=== PATIENT | male | born 1975 | race American Indian/Alaskan Native ===

== ENCOUNTER 2017-04-11 11:45 | Emergency (ER) | payer BC, MEDICAID, OTHER ==
--- NOTE | 2017-04-11 11:48 | EDM.PDOC ---
ED HPI GENERAL MEDICAL PROBLEM - General Chief Complaint: Respiratory Problem Stated Complaint: [id number] AT WORK AND INHALED CLORINE GAS Time Seen by Provider: 04/11/17 11:48 Source of Information: Reports: Patient, RN, RN Notes Reviewed History Limitations: Reports: No Limitations - History of Present Illness INITIAL COMMENTS - FREE TEXT/NARRATIVE: Pt c/o chlorine gas exposure at work just [employer] to the ER. He entered a room to change a chlorine gas cylinder and when he stepped into the area he was overwhelmed by chlorine gas. Pt states the he immediately coughed, gagged, and choked but was able to quickly leave the area. He coughed hard for quite a while , but now is starting to feel better. He denies current pain or shortness of breath. Admits to minor eye irritation and a slight burning in his throat. Onset: Today Duration: Improving Location: Reports: Generalized Quality: Reports: Burning Severity: Moderate Improves with: Reports: None Worsens with: Reports: None Associated Symptoms: Reports: No Other Symptoms Back Pain Score (Numeric/FACES): 3 - Related Data Allergies Allergy/AdvReac Type Severity Reaction Status Date / Time No Known Allergies Allergy Verified 04/11/17 12:04 Home Meds: Home Meds . [No Known Home Meds] 10/02/13 [History] Past Medical History - Past Health History Medical/Surgical History: Denies Medical/Surgical History HEENT History: Reports: None Cardiovascular History: Reports: None Respiratory History: Reports: None Gastrointestinal History: Reports: None Genitourinary History: Reports: None Musculoskeletal History: Reports: None Neurological History: Reports: None Psychiatric History: Reports: None Endocrine/Metabolic History: Reports: None Hematologic History: Reports: None Immunologic History: Reports: None Oncologic (Cancer) History: Reports: None Dermatologic History: Reports: None - Past Surgical History Head Surgeries/Procedures: Reports: None Social & Family History - Family History Family Medical History: Noncontributory - Tobacco Use Smoking Status *Q: Never Smoker Years of Tobacco use: 0 Used Tobacco, but Quit: Yes Month Tobacco Last Used: 10/2011 Second Hand Smoke Exposure: Yes - Recreational Drug Use Recreational Drug Use: No - Living Situation & Occupation Living situation: Reports: Occupation: Employed ED ROS GENERAL - Review of Systems Review Of Systems: ROS reveals no pertinent complaints other than HPI. ED EXAM, GENERAL - Physical Exam Exam: See Below Exam Limited By: No Limitations General Appearance: Alert, WD/WN, No Apparent Distress, Obese Eye Exam: Bilateral Eye: Conjunctival Injection (mild), EOMI, PERRL, Other ( mild scleral erythema) Ears: Normal External Exam, Normal Canal, Hearing Grossly Normal, Normal TMs Nose: No Blood, Nasal Drainage (small amt. of clear nasal mucus drainage) Throat/Mouth: Normal Inspection, Normal Lips, Normal Teeth, Normal Gums, Normal Oropharynx, Normal Voice, No Airway Compromise Head: Atraumatic, Normocephalic Neck: Normal Inspection, Supple, Non-Tender, Full Range of Motion Respiratory/Chest: No Respiratory Distress, Lungs Clear, Normal Breath Sounds, No Accessory Muscle Use, Chest Non-Tender Cardiovascular: Normal Peripheral Pulses, Regular Rate, Rhythm, No Edema, No Gallop, No JVD, No Murmur, No Rub GI/Abdominal: Normal Bowel Sounds, Soft, Non-Tender, No Distention (Male) Exam: Deferred Rectal (Males) Exam: Deferred Back Exam: Normal Inspection Extremities: Normal Inspection Neurological: Alert, Oriented, CN II-XII Intact, Normal Cognition, Normal Gait, No Motor/Sensory Deficits Psychiatric: Normal Affect, Normal Mood Skin Exam: Warm, Dry, Intact, Normal Color, No Rash Course - Vital Signs Last Recorded V/S: Last Vital Signs Temp 36.7 C 04/11/17 11:54 Pulse 60 04/11/17 11:54 Resp 20 04/11/17 11:54 BP 135/98 H 04/11/17 11:54 Pulse Ox 98 04/11/17 11:54 - Re-Assessments/Exams Free Text/Narrative Re-Assessment/Exam: 04/11/17 12:41 Eyes irrigated by RN, see nurses documentation. Departure - Departure Time of Disposition: 12:27 Disposition: Home, Self-Care 01 Condition: Good Clinical Impression: Chlorine gas exposure, Work related injury - Discharge Information Instructions: Chemical Inhalation Injury Forms: ED Department Discharge Additional Instructions: Go home take a long cool shower, and put on different clothes when you get dressed. Drink plenty of cold water today. Avoid hot drinks today. Follow up in clinic in 2 days if any symptoms persist.
[2017-04-11 11:55] VITALS: BP 135/98
== END 2017-04-11 12:37 | disposition home or self-care (01) ==
LOC: DL.ED 11:45
DX: Z77.098 Contact with and (suspected) exposure to other hazardous, chiefly nonmedicinal, chemicals (principal); H57.8 Other specified disorders of eye and adnexa; Y99.0 Civilian activity done for income or pay
CPT/HCPCS: 99283

== ENCOUNTER 2022-05-19 23:17 | Emergency (ER) | payer BC, OTHER ==
[2022-05-19 23:42] VITALS: BP 157/110; PULSE 87
[2022-05-19] MEDS ORDERED: Sodium Chloride 0.9% 10 ML Syringe FLUSH PRN (23:45)
[2022-05-20 00:36] LABS: AMPHETAMINES,URINE NEGATIVE (NEGATIVE); BARBITURATES,URINE NEGATIVE (NEGATIVE); BENZODIAZEPINE,URINE NEGATIVE (NEGATIVE); MDMA (ECSTASY), URINE NEGATIVE (NEGATIVE); METHADONE,URINE NEGATIVE (NEGATIVE); METHAMPHETAMINES,URINE NEGATIVE (NEGATIVE); OPIATES,URINE NEGATIVE (NEGATIVE); OXYCODONE,URINE NEGATIVE (NEGATIVE); PHENCYCLIDINE,URINE NEGATIVE (NEGATIVE); TCA,URINE NEGATIVE (NEGATIVE)
[2022-05-20 00:43] LABS: ANION GAP 11.6 mEq/L (7-13)
== END 2022-05-20 01:41 | disposition home or self-care (01) ==
LOC: DL.ED 23:17
DX: R55 Syncope and collapse (principal); R74.01 Elevation of levels of liver transaminase levels; Z20.822 Contact with and (suspected) exposure to COVID-19
CPT/HCPCS: 36415; 80053; 80305-QW; 80307; 81003; 82140; 83605; 83735; 84145; 84443; 84484; 85025; 86140; 93005; 93010; 99283; 99284; J3490; U0002

== ENCOUNTER 2023-06-13 14:09 | Emergency (ER) | payer BC, OTHER ==
[2023-06-13] MEDS ORDERED: Sodium Chloride 0.9% 10 ML Syringe FLUSH PRN (14:20)
[2023-06-13] MEDS ORDERED: Sodium Chloride 0.9% 1,000 ML IV ONE (14:22)
[2023-06-13 15:04] LABS: BASOPHILS PERCENT AUTO 0.5 % (0.0-1.0); EOSINOPHILS PERCENT AUTO 0.6 % (1.0-3.0); HEMATOCRIT 42.6 % (40.0-54.0); HEMOGLOBIN 14.5 g/dL (14.0-18.0); LYMPHOCYTES PERCENT AUTO 15.8 % (20.5-50.1); MEAN CORPUSCULAR HEMOGLOBIN 29.5 pg (27.0-34.0); MEAN CORPUSCULAR VOLUME 86.6 fL (80-100); MONOCYTES PERCENT AUTO 9.7 % (2-8); NEUTROPHILS PERCENT AUTO 73.4 % (42.2-75.2); PLATELET COUNT,PLT 349 10^3/uL (150-450); RED BLOOD CELL COUNT 4.92 10^6/uL (4.6-6.2); WHITE BLOOD CELL COUNT,WBC 9.9 10^3/uL (5.0-10.0)
[2023-06-13 15:30] LABS: A/G RATIO 0.8; ALANINE AMINOTRANSFERASE,ALT 202 U/L (16-63); ALBUMIN 3.6 g/dL (3.4-5.0); ALKALINE PHOSPHATASE 103 U/L (46-116); ANION GAP 15.5 mEq/L (7-13); ASPARTATE AMNIOTRANSFERASE,AST 149 U/L (15-37); BILIRUBIN TOTAL 0.4 mg/dL (0.2-1.0); BLOOD UREA NITROGEN,BUN 7 mg/dL (7-18); BUN/CREATININE RATIO 9.7 (No establ ref range); C-REACTIVE PROTEIN 0.82 ng/dL (<=0.30); CALCIUM 8.3 mg/dL (8.5-10.1); CARBON DIOXIDE,CO2 25 mmol/L (21-32); CHLORIDE,CL 101 mmol/L (98-107); CREATININE 0.72 mg/dL (0.70-1.30); GLUCOSE RANDOM 127 mg/dL (70-99); MAGNESIUM 1.7 mg/dL (1.8-2.4); POTASSIUM,K 3.5 mmol/L (3.5-5.1); PROTEIN TOTAL,TP 8.4 g/dL (6.4-8.2); SODIUM,NA 138 mmol/L (136-145); TSH ULTRASENSITIVE 0.59 uIU/mL (0.36-3.74)
[2023-06-13 15:32] LABS: ESTIMATED GFR 114 mL/min (>=60)
[2023-06-13 15:44] VITALS: BP 150/93; PULSE 88
== END 2023-06-13 16:30 | disposition home or self-care (01) ==
LOC: DL.ED 14:09
DX: R42 Dizziness and giddiness (principal)
CPT/HCPCS: 36415; 80053; 83735; 84443; 84484; 85025; 85379; 86140; 93005; 93010; 96360; 99284; 99285-25; J7030

== ENCOUNTER 2023-10-26 01:30 | Emergency (ER) | payer BC, OTHER ==
[2023-10-26] MEDS ORDERED: Sodium Chloride 0.9% 10 ML Syringe FLUSH PRN (01:42)
[2023-10-26] MEDS ORDERED: Sodium Chloride 0.9% 1,000 ML IV ONE (01:43)
[2023-10-26] MEDS ORDERED: Ondansetron 4 MG/2 ML SDV IVPUSH ONE (01:43)
[2023-10-26 01:46] VITALS: BP 140/103; PULSE 101
[2023-10-26 01:57] LABS: BASOPHILS PERCENT AUTO 0.3 % (0.0-1.0); EOSINOPHILS PERCENT AUTO 0.1 % (1.0-3.0); HEMATOCRIT 47.3 % (40.0-54.0); LYMPHOCYTES PERCENT AUTO 4.5 % (20.5-50.1); MEAN CORPUSCULAR HEMOGLOBIN 29.5 pg (27.0-34.0); MEAN CORPUSCULAR HGB CONC 33.8 g/dL (33.0-35.0); MEAN CORPUSCULAR VOLUME 87.3 fL (80-100); MONOCYTES PERCENT AUTO 4.5 % (2-8); NEUTROPHILS PERCENT AUTO 90.6 % (42.2-75.2); PLATELET COUNT,PLT 340 10^3/uL (150-450); RED BLOOD CELL COUNT 5.42 10^6/uL (4.6-6.2); WHITE BLOOD CELL COUNT,WBC 14.5 10^3/uL (5.0-10.0)
[2023-10-26 02:13] LABS: A/G RATIO 0.8; ALANINE AMINOTRANSFERASE,ALT 261 U/L (16-63); ALBUMIN 3.8 g/dL (3.4-5.0); ALKALINE PHOSPHATASE 105 U/L (46-116); ANION GAP 17.6 mEq/L (7-13); ASPARTATE AMNIOTRANSFERASE,AST 302 U/L (15-37); BILIRUBIN TOTAL 0.8 mg/dL (0.2-1.0); BLOOD UREA NITROGEN,BUN 14 mg/dL (7-18); C-REACTIVE PROTEIN 1.39 ng/dL (<=0.50); CALCIUM 8.9 mg/dL (8.5-10.1); CARBON DIOXIDE,CO2 22 mmol/L (21-32); CHLORIDE,CL 101 mmol/L (98-107); GLUCOSE RANDOM 149 mg/dL (70-99); POTASSIUM,K 3.6 mmol/L (3.5-5.1); PROTEIN TOTAL,TP 8.7 g/dL (6.4-8.2); SODIUM,NA 137 mmol/L (136-145)
[2023-10-26 02:14] LABS: ESTIMATED GFR 94 mL/min (>=60)
[2023-10-26 02:16] LABS: LACTIC ACID 0.9 mmol/L (0.4-2.0)
[2023-10-26] MEDS ORDERED: Iopamidol 612 MG/ML 100 ML Bottle IVPUSH ONE (02:21)
[2023-10-26 02:30] LABS: CORONAVIRUS COVID-19 NAA NEGATIVE (NEGATIVE); INFLUENZA A NAA NEGATIVE (NEGATIVE); INFLUENZA B NAA NEGATIVE (NEGATIVE)
[2023-10-26] MEDS ORDERED: Take Home: Ondansetron 4 MG Tab.DIS, 5 Tab Pack PO ONE (03:44)
== END 2023-10-26 03:56 | disposition home or self-care (01) ==
LOC: DL.ED 01:30
DX: K52.9 Noninfective gastroenteritis and colitis, unspecified (principal)
CPT/HCPCS: 0240U; 36415; 74177; 80053; 83605; 85025; 86140; 96361; 96374; 99284; 99284-25; J2405; J3490; J7030; Q0162; Q9967

== ENCOUNTER 2023-11-03 19:21 | Emergency (ER) | payer BC, OTHER | END 2023-11-03 21:30 | disposition left against medical advice (07) | LOC: DL.ED 19:21 | DX: Z53.21 Procedure and treatment not carried out due to patient leaving prior to being seen by health care provider (principal) ==

== ENCOUNTER 2024-11-28 21:19 | Emergency (ER) | payer BC, OTHER ==
[2024-11-28 21:42] LABS: BASOPHILS PERCENT AUTO 0.4 % (0.0-1.0); HEMOGLOBIN 13.9 g/dL (14.0-18.0); LYMPHOCYTES PERCENT AUTO 14.5 % (20.5-50.1); MEAN CORPUSCULAR HGB CONC 33.9 g/dL (33.0-35.0); MEAN CORPUSCULAR VOLUME 85.4 fL (80-100); MONOCYTES PERCENT AUTO 8.6 % (2-8); NEUTROPHILS PERCENT AUTO 74.5 % (42.2-75.2); PLATELET COUNT,PLT 332 10^3/uL (150-450); WHITE BLOOD CELL COUNT,WBC 11.6 10^3/uL (5.0-10.0)
[2024-11-28 22:02] LABS: A/G RATIO 0.8; ALANINE AMINOTRANSFERASE,ALT 51 U/L (16-63); ALBUMIN 3.4 g/dL (3.4-5.0); ALKALINE PHOSPHATASE 139 U/L (46-116); ANION GAP 14.7 mEq/L (7-13); ASPARTATE AMNIOTRANSFERASE,AST 43 U/L (15-37); BILIRUBIN TOTAL 0.8 mg/dL (0.2-1.0); BLOOD UREA NITROGEN,BUN 10 mg/dL (7-18); BUN/CREATININE RATIO 14.7 (No establ ref range); CALCIUM 8.7 mg/dL (8.5-10.1); CARBON DIOXIDE,CO2 25 mmol/L (21-32); CHLORIDE,CL 102 mmol/L (98-107); CREATININE 0.68 mg/dL (0.70-1.30); EST CRCL DRUG DOSING (CG) 119.89 mL/min; ESTIMATED GFR 115 mL/min (>=60); ETHANOL BLOOD MEDICAL < 3 mg/dL (0); GLUCOSE RANDOM 120 mg/dL (70-99); LIPASE 50 U/L (16-77); MAGNESIUM 1.9 mg/dL (1.8-2.4); POTASSIUM,K 3.7 mmol/L (3.5-5.1); PROTEIN TOTAL,TP 7.9 g/dL (6.4-8.2); SODIUM,NA 138 mmol/L (136-145); TSH ULTRASENSITIVE 1.38 uIU/mL (0.36-3.74)
[2024-11-28 23:08] VITALS: BP 144/101; PULSE 71
== END 2024-11-28 23:36 | disposition home or self-care (01) ==
LOC: DL.ED 21:19
DX: R07.89 Other chest pain (principal)
CPT/HCPCS: 36415; 71045; 80053; 80307; 83690; 83735; 84443; 84484; 85025; 93005; 93010; 99283; 99285